=== PATIENT | male | born 1970 | race African-American/Black ===

== ENCOUNTER 2022-11-12 12:34 | Emergency (ER) | payer OTHER ==
[2022-11-12 12:51] VITALS: BP 139/84; PULSE 89; RESP 16; TEMP 98.9; BMI 33.2
[2022-11-12 14:36] LABS: BASO % 0.9 % (0-2.0); EOS % 1.7 % (0-4.5); HEMOGLOBIN 14.7 GM/dL (11.7-16.9); MCH 29.3 pg (25.7-33.7); MCHC 32.7 g/dl (32.0-35.9); MEAN CELL VOLUME 89.6 fl (80-96); MEAN PLT VOLUME 7.8 fl (7.5-11.1); MONO % 7.9 % (3.8-10.2); NEUT % 50.5 % (42.8-82.8); PLATELET COUNT 242 10^3/uL (134-434); RBC 5.02 M/mm3 (4.00-5.60); RDW 13.1 % (11.9-15.9); WHITE BLOOD COUNT 5.5 K/mm3 (4.0-10.0)
[2022-11-12 14:58] LABS: ALBUMIN 3.9 g/dl (3.4-5.0); BLOOD UREA NITROGEN 12.6 mg/dL (7-18); CALCIUM 9.4 mg/dL (8.5-10.1)
[2022-11-12 15:01] LABS: CREATININE 0.7 mg/dL (0.55-1.3)
[2022-11-12 15:03] LABS: BILIRUBIN,TOTAL 0.5 mg/dL (0.2-1)
== END 2022-11-12 14:21 | disposition home or self-care (01) ==
LOC: JERFT 12:34
DX: G51.0 Bell's palsy (principal); B02.9 Zoster without complications
CPT/HCPCS: 36415; 80053; 85025; 86618; 99283-25

== ENCOUNTER 2023-08-11 11:58 | Emergency (ER) | payer OTHER ==
[2023-08-11 16:05] VITALS: BP 111/62; PULSE 79; RESP 16; TEMP 97.9; BMI 30.8
== END 2023-08-11 12:50 | disposition left against medical advice (07) ==
LOC: JERFT 11:58 → JER 11:58 → JERFT 12:50
DX: M54.2 Cervicalgia (principal)
CPT/HCPCS: 99281-25

== ENCOUNTER 2023-08-12 06:31 | Emergency (ER) | payer OTHER ==
[2023-08-12 06:43] VITALS: BP 125/71; PULSE 89; RESP 18; TEMP 98.3; BMI 30.8
[2023-08-12] MEDS ORDERED: CYCLOBENZAPRINE HCL 10 MG TABLET (FP) PO ONE (07:53)
[2023-08-12] MEDS ORDERED: ACETAMINOPHEN 500 MG TABLET (FP) PO ONE (07:53)
[2023-08-12] MEDS ORDERED: LIDOCAINE 5% TOPICAL PATCH TP ONE (07:53)
[2023-08-12] MEDS ORDERED: LIDOCAINE 4% PATCH TP ONE ×2 (08:13→08:19)
[2023-08-12] MEDS ORDERED: ACETAMINOPHEN 500 MG TABLET (FP) ONE (08:13)
[2023-08-12] MEDS ORDERED: CYCLOBENZAPRINE HCL 10 MG TABLET (FP) ONE (08:13)
[2023-08-12] MEDS ORDERED: LIDOCAINE PATCH REMOVAL MC SCH ×2 (22:00)
== END 2023-08-12 08:30 | disposition home or self-care (01) ==
LOC: JER 06:31
DX: M54.50 Low back pain, unspecified (principal); M54.2 Cervicalgia; V89.2XXA Person injured in unspecified motor-vehicle accident, traffic, initial encounter; Y92.410 Unspecified street and highway as the place of occurrence of the external cause
CPT/HCPCS: 99283-25

== ENCOUNTER 2024-07-07 07:57 | Emergency (ER) | payer OTHER ==
[2024-07-07 08:04] VITALS: BP 159/80; PULSE 102; RESP 17; TEMP 97.9; BMI 30.1
[2024-07-07] MEDS ORDERED: KETOROLAC TROMETHAMINE 30 MG/1 ML VIAL ONE (09:07)
[2024-07-07] MEDS: KETOROLAC TROMETHAMINE 30 MG/1 ML VIAL IM ONE (09:14)
[2024-07-07 16:44] LABS: HIV INTERPRETATION NEGATIVE (NEGATIVE)
== END 2024-07-07 09:20 | disposition home or self-care (01) ==
LOC: JERFT 07:57
PROC: 3E023GC Introduction of Other Therapeutic Substance into Muscle, Percutaneous Approach (ICD-10-PCS; principal; 2024-07-07)
DX: S70.12XA Contusion of left thigh, initial encounter (principal); M25.512 Pain in left shoulder; V43.52XA Car driver injured in collision with other type car in traffic accident, initial encounter
CPT/HCPCS: 36415; 73030-TC-LT-FY; 86803; 87389; 99284-25